=== PATIENT | female | born 1980 | race Caucasian/White ===

== ENCOUNTER 2017-04-14 23:45 | Inpatient (IN) | payer OTHER ==
[~2017-04-14] VITALS: Ht 162.6 cm; Wt 66.0 kg
[~2017-04-14 23:45] MED LIST: DHA200CA PO; PREN1TAB30
[2017-04-15] VITALS (42 sets, daily range): BP systolic 89–170; BP diastolic 24–138; PULSE 72–105; RESP 16–18; TEMP 98–98.5; O2SAT 100
[2017-04-15] MEDS ORDERED: LIDOCAINE HCL 1% 50 ML VIAL ONE (00:34)
[2017-04-15] MEDS ORDERED: fentaNYL 2MCG-BUPIV 0.125% INJ 100 ML ONE (00:53)
[2017-04-15 00:55] LABS: BLOOD, URINE NEG (NEG); COMMENT (UR) CULT NOT INDICATED; CULTURE IF INDICATED CULT NOT INDICATED; GLUCOSE,URINE NEG (NEG); KETONE, URINE NEG (NEG); NITRITE,URINE NEG (NEG); PH, URINE 6.5 (5.0-8.5); SQUAMOUS EPITHELIAL CELL URINE <1 /hpf (0-5); URINE COLOR LIGHT-YELLOW (YELLW/STRAW)
[2017-04-15 01:00] LABS: AUTOMATED NEUTROPHIL # 10.6 TH/MM3 (1.8-7.7); BASOPHIL % 0.2 % (0.0-2.0); EOSINOPHIL # 0.1 TH/MM3 (0-0.4); EOSINOPHIL % 0.8 % (0.0-4.0); HEMATOCRIT 35.9 % (35.0-46.0); HEMO FLAGS DIFF FINAL; LYMPH % 19.7 % (9.0-44.0); LYMPHOCYTE # 2.9 TH/MM3 (1.0-4.8); MEAN CELL VOLUME 98.3 FL (80.0-100.0); MEAN CORPUSCULAR HEMOGLOBIN 34.2 PG (27.0-34.0); MEAN CORPUSCULAR HGB CONC 34.8 % (32.0-36.0); MONO % 7.4 % (0.0-8.0); NEUT % 71.9 % (16.0-70.0); PLATELET COUNT 169 TH/MM3 (150-450); RED BLOOD COUNT 3.66 MIL/MM3 (4.00-5.30); RED CELL DISTRIBUTION WIDTH 13.2 % (11.6-17.2); WHITE BLOOD COUNT 14.8 TH/MM3 (4.0-11.0)
[2017-04-15] MEDS ORDERED: ONDANSETRON HCL 4 MG/2 ML VIAL IV PUSH PRN (01:00)
[2017-04-15] MEDS ORDERED: CITRIC ACID-SODIUM CITRATE LIQ 30 ML UDC PO SCH (01:00)
[2017-04-15] MEDS ORDERED: NS 500 ML BOLUS IV PRN (01:00)
[2017-04-15] MEDS ORDERED: MINERAL OIL 10 ML VIAL TOPICAL PRN (01:00)
[2017-04-15] MEDS ORDERED: NS 1000 ML IV PRN (01:00)
[2017-04-15] MEDS ORDERED: LIDOCAINE HCL 1% 50 ML VIAL I-DERMAL PRN (01:00)
[2017-04-15] MEDS ORDERED: LACTATED RINGER'S 1000 ML IV SCH (01:00)
[2017-04-15] MEDS ORDERED: OXYTOCIN 30 UNITS 500ML PREMIX IV ONE (01:00)
[2017-04-15] MEDS ORDERED: LIDOCAINE HCL 1% 50 ML VIAL INFIL PRN (01:00)
[2017-04-15] MEDS ORDERED: OXYTOCIN 30 UNITS/NS 500ML PREMIX IV SCH (01:00)
[2017-04-15] MEDS ORDERED: LACTATED RINGER'S 1000 ML BOLUS IV PRN (01:00)
[2017-04-15] MEDS ORDERED: ePHEDrine/NS 25 MG/5 ML SYR ONE (02:09)
[2017-04-15] MEDS ORDERED: DO NOT ADMINISTER ANTICOAGULANTS PRN (02:45)
[2017-04-15] MEDS ORDERED: fentaNYL 2MCG-BUPIV 0.125% 100 ML EPIDURAL SCH (02:45)
[2017-04-15] MEDS ORDERED: ePHEDrine/NS 25 MG/5 ML SYR IV PUSH PRN (02:45)
[2017-04-15] MEDS ORDERED: NO SYSTEM NARCOTICS PRN (02:45)
[2017-04-15] MEDS ORDERED: OXYTOCIN 10 UNIT/ML AMP ONE (03:09)
--- NOTE | 2017-04-15 03:22 | PD.OB.DELI ---
Weeks gestation: 40 Gest age assessed date: Apr 15, 2017 Gest age assessed time: 03:20 Pt started active labor?: Yes Active labor start date: Apr 14, 2017 Active labor start time: 19:00 Medical induction of labor?: No Artificial rupture of membrane: No Anesthesia: Epidural Episiotomy: None Vaginal Delivery: Normal Presentation: Occiput anterior Nuchal Cord: None Delayed cord clamping (45 sec): Yes : Female Delivery date: Apr 15, 2017 Delivery time: 03:22 One Minute : 8 Five Minute : 9 Weight: 7 Placenta: Spontaneous delivery Laceration: 1 deg Repair: Chromic running Estimated blood loss: 300 Additional Information tiny midline first degree approximated with Brynn Craven MD Apr 15, 2017 03:22
[2017-04-15] MEDS ORDERED: ACETAMINOPHEN 325 MG TAB PO PRN (03:30)
[2017-04-15] MEDS ORDERED: BENZOCAINE 20% TOPICAL SPRAY 60 ML CAN TOPICAL PRN (03:30)
[2017-04-15] MEDS ORDERED: ZOLPIDEM TARTRATE 5 MG TAB PO PRN (03:30)
[2017-04-15] MEDS ORDERED: ONDANSETRON ODT 4 MG TAB PO PRN (03:30)
[2017-04-15] MEDS ORDERED: ALUMINUM/MAGNESIUM/SIMETH 30 ML CUP PO PRN (03:30)
[2017-04-15] MEDS ORDERED: IBUPROFEN 800 MG TAB PO PRN (03:30)
[2017-04-15] MEDS ORDERED: SODIUM CHLORIDE 0.9% FLUSH 10 ML FLUSH IV FLUSH PRN (03:30)
[2017-04-15] MEDS ORDERED: DOCUSATE SODIUM 50 MG/SENNA 8.6 MG TAB PO PRN (03:30)
[2017-04-15] MEDS ORDERED: OXYTOCIN 30 UNITS-500ML PREMIX 500 ML IV SCH (03:30)
[2017-04-15] MEDS ORDERED: WITCH HAZEL 50%/GLYCERIN 12.5% 40 PAD JAR TOPICAL PRN (03:30)
--- NOTE | 2017-04-15 08:12 | HHI.OB ---
Subjective Post Day: 0 Remarks Doing well 5 hours post delivery no complaints Objective Vitals/I&O Vital Signs Date Time Temp Pulse Resp B/P (MAP) Pulse Ox O2 Delivery O2 Flow Rate FiO2 04/15/17 04:45 75 114/73 (87) 04/15/17 04:30 106/75 (85) 04/15/17 04:26 98.1 04/15/17 04:16 85 105/67 (80) 04/15/17 04:11 18 04/15/17 04:01 107/85 (92) 04/15/17 03:55 18 04/15/17 03:45 18 04/15/17 03:31 105 94/76 (82) 04/15/17 03:29 98.0 04/15/17 03:28 18 04/15/17 02:46 90 113/69 (84) 04/15/17 02:40 96 04/15/17 02:40 100 04/15/17 02:39 72 159/138 (145) 04/15/17 02:35 100 04/15/17 02:34 170/121 (137) 04/15/17 02:30 100 04/15/17 02:25 95 100 04/15/17 02:15 137/86 (103) 04/15/17 02:10 127/75 (92) 100 04/15/17 02:10 97 04/15/17 02:05 91 04/15/17 02:01 103 105/24 (51) 04/15/17 02:00 18 04/15/17 02:00 86 100 04/15/17 01:55 93 100 04/15/17 01:50 84 04/15/17 01:46 86 109/72 (84) 04/15/17 01:45 85 04/15/17 01:45 89/45 (60) 100 04/15/17 01:40 83 100 04/15/17 01:35 85 04/15/17 01:35 85 115/77 (90) 100 04/15/17 01:31 86 04/15/17 01:30 88 04/15/17 01:30 100 04/15/17 01:25 86 04/15/17 01:25 100 04/15/17 01:21 126/91 (103) 04/15/17 01:21 85 11/21/17 01:20 100 04/15/17 01:18 88 121/78 (92) 04/15/17 01:16 138/81 (100) 04/15/17 01:16 88 04/15/17 01:15 100 04/15/17 01:10 89 100 04/15/17 01:09 18 04/15/17 01:05 95 04/15/17 01:05 120/45 (70) Objective Remarks GENERAL: Well-nourished, well-developed patient. CARDIOVASCULAR: Regular rate and rhythm without murmurs, gallops, or rubs. RESPIRATORY: Breath sounds equal bilaterally. No accessory muscle use. ABDOMEN/GI: Abdomen soft, non-tender. Fundus: Firm, non-tender at umbilicus. GENITOURINARY: Light to moderate bleeding. EXTREMITIES: No cyanosis or edema, non-tender, without signs of DVT. Medications and IVs Current Medications Medications (Trade) Dose Ordered Sig/Doris Route Start Time Stop Time Status Last Admin Miscellaneous Information No systemic narcotics to be given except... UNSCH PRN .XX 04/15/17 02:45 04/16/17 02:44 Miscellaneous Information DO NOT ADMINISTER ANY ANTICOAGUL... UNSCH PRN .XX 04/15/17 02:45 04/16/17 02:44 Fentanyl/ Bupivacaine HCl 100 ml @ 0 mls/hr TITRATE EPIDURAL 04/15/17 02:45 (ePHEDrine/NS 25 MG/5 ML SYR) 10 mg UNSCH PRN IV PUSH 04/15/17 02:45 04/16/17 02:44 (NS Flush) 2 ml BID IV FLUSH 04/15/17 09:00 (NS Flush) 2 ml UNSCH PRN IV FLUSH 04/15/17 03:30 Oxytocin 500 ml @ 100 mls/hr CONTINUOUS IV 04/15/17 03:30 04/15/17 08:29 (Tylenol) 650 mg Q4H PRN PO 04/15/17 03:30 (Motrin) 800 mg Q8H PRN PO 04/15/17 03:30 (Americaine 20% Top Spr) 1 spray Q4H PRN TOPICAL 04/15/17 03:30 (Tucks Pads) 1 applic QID PRN TOPICAL 04/15/17 03:30 (Latha-Colace) 2 tab Q12H PRN PO 04/15/17 03:30 (Ambien) 5 mg HS PRN PO 04/15/17 03:30 (M-M-R Ii Inj) 0.5 ml ONCE ONCE SQ 04/15/17 16:00 04/15/17 16:01 (Boostrix Inj) 0.5 ml ONCE ONCE IM 04/15/17 16:00 04/15/17 16:01 (Mag-Al Plus Susp Liq) 15 ml Q8H PRN PO 04/15/17 03:30 (Zofran Odt) 4 mg Q6H PRN PO 04/15/17 03:30 Assessment/Plan Assessment and Plan doing well in early post hopes for discharge PPD 1 (tomorrow) Brynn Barber MD Apr 15, 2017 08:12
[2017-04-15] MEDS ORDERED: SODIUM CHLORIDE 0.9% FLUSH 10 ML FLUSH IV FLUSH SCH (09:00)
[2017-04-15] MEDS ORDERED: MEASLES, MUMPS, RUBELLA VACCINE 0.5 ML VIAL SQ ONE (16:00)
[2017-04-15] MEDS ORDERED: DIPHTH/TETANUS/ACEL PERTUSSIS (BOOSTER) 0.5 ML VIAL/PFS IM ONE (16:00)
--- NOTE | 2017-04-15 17:52 | HHI.DCPOC ---
Discharge Care Plan Diagnosis: (1) Normal vaginal delivery Your Health Problems Are: Vaginal delivery Report Symptoms to Your Doctor -Temperature above 100.5 degrees -Redness, of incision or excessive or foul smelling drainage -Unusual pain or calf pain -Increased vaginal bleeding -Painful or difficulty urinating -Feelings of extreme sadness or anxiety after 2 weeks Goals to Promote Your Health * To prevent worsening of your condition and complications * To maintain your health at the optimal level Directions to Meet Your Goals Take your medications as prescribed Follow your dietary instruction Follow activity as directed Ensure plenty of rest for recovery Drink fluids for hydration Keep your appointments as scheduled Take your immunizations and boosters as scheduled If your symptoms worsen call your PCP, if no PCP go to Urgent Care Center or Emergency Room Smoking is Dangerous to Your Health. Avoid second hand smoke Call the 24-hour crisis hotline for domestic abuse at Juan Torres MD Apr 15, 2017 17:52
--- NOTE | 2017-04-16 06:55 | HHI.OB ---
Subjective Post Day: 1 Remarks Doing well 36 hours post nursing no issues planning for discharge this am Objective Vitals/I&O Vital Signs Date Time Temp Pulse Resp B/P (MAP) Pulse Ox O2 Delivery O2 Flow Rate FiO2 04/15/17 19:30 98.2 80 16 109/73 (85) 04/15/17 13:00 98.5 16 Objective Remarks GENERAL: Well-nourished, well-developed patient. CARDIOVASCULAR: Regular rate and rhythm without murmurs, gallops, or rubs. RESPIRATORY: Breath sounds equal bilaterally. No accessory muscle use. ABDOMEN/GI: Abdomen soft, non-tender. Fundus: Firm, non-tender at umbilicus. GENITOURINARY: Light to moderate bleeding. EXTREMITIES: No cyanosis or edema, non-tender, without signs of DVT. Medications and IVs Current Medications Medications (Trade) Dose Ordered Sig/Doris Route Start Time Stop Time Status Last Admin Fentanyl/ Bupivacaine HCl 100 ml @ 0 mls/hr TITRATE EPIDURAL 04/15/17 02:45 (NS Flush) 2 ml BID IV FLUSH 04/15/17 09:00 (NS Flush) 2 ml UNSCH PRN IV FLUSH 04/15/17 03:30 (Tylenol) 650 mg Q4H PRN PO 04/15/17 03:30 (Motrin) 800 mg Q8H PRN PO 04/15/17 03:30 (Americaine 20% Top Spr) 1 spray Q4H PRN TOPICAL 04/15/17 03:30 (Tucks Pads) 1 applic QID PRN TOPICAL 04/15/17 03:30 (Latha-Colace) 2 tab Q12H PRN PO 04/15/17 03:30 (Ambien) 5 mg HS PRN PO 04/15/17 03:30 (Mag-Al Plus Susp Liq) 15 ml Q8H PRN PO 04/15/17 03:30 (Zofran Odt) 4 mg Q6H PRN PO 04/15/17 03:30 Assessment/Plan Assessment and Plan doing well in early post hopes for discharge PPD 1 (tomorrow) 04/16/17 ready for discharge recommend follow up renal sono for mild pyelectasis RTO 6 weeks Brynn Barber MD Apr 16, 2017 06:55
[2017-04-16] MEDS ORDERED: IBUP1TAB7 PO (06:56)
[2017-04-16 09:00] VITALS: BP 109/77; PULSE 86; RESP 18; TEMP 98; O2SAT 97
== END 2017-04-16 11:26 | disposition home or self-care (01) | DRG 775 ==
LOC: HOBED 23:45 → H2EB 04-15 00:21 → H1EA 04-15 05:33
PROVIDERS: ADMIT Obstetrics & Gynecology; ATTEND Obstetrics & Gynecology
PROC: 10E0XZZ Delivery of Products of Conception, External Approach (ICD-10-PCS; principal; 2017-04-15)
PROC: 0HQ9XZZ Repair Perineum Skin, External Approach (ICD-10-PCS; 2017-04-15)
PROC: 3E0R3BZ Introduction of Anesthetic Agent into Spinal Canal, Percutaneous Approach (ICD-10-PCS; 2017-04-15)
PROC: 00HU33Z Insertion of Infusion Device into Spinal Canal, Percutaneous Approach (ICD-10-PCS; 2017-04-15)
DX: O70.0 First degree perineal laceration during delivery (principal); O35.9XX0 Maternal care for (suspected) fetal abnormality and damage, unspecified, not applicable or unspecified; Z37.0 Single live birth; Z3A.40 40 weeks gestation of pregnancy
CPT/HCPCS: 59025; 80307; 81001; 85025; 86900; 86901; 90715; J2590

== ENCOUNTER 2017-06-16 04:29 | Emergency (ER) | payer OTHER ==
[2017-06-16 04:56] LABS: BILIRUBIN, URINE NEG (NEG); GLUCOSE,URINE NEG (NEG); KETONE, URINE NEG (NEG); NITRITE,URINE NEG (NEG); URINE LEUKOCYTE ESTERASE TRACE (NEG)
[2017-06-16 05:26] LABS: BLOOD, URINE TRACE (NEG)
[2017-06-16 05:33] LABS: AUTOMATED NEUTROPHIL # 5.9 TH/MM3 (1.8-7.7); BASOPHIL # 0.1 TH/MM3 (0-0.2); BASOPHIL % 1.2 % (0.0-2.0); EOSINOPHIL # 0.1 TH/MM3 (0-0.4); EOSINOPHIL % 0.7 % (0.0-4.0); HEMO FLAGS DIFF FINAL; HEMOGLOBIN 12.5 GM/DL (11.6-15.3); LYMPH % 28.7 % (9.0-44.0); LYMPHOCYTE # 2.6 TH/MM3 (1.0-4.8); MEAN CELL VOLUME 96.6 FL (80.0-100.0); MEAN CORPUSCULAR HGB CONC 32.1 % (32.0-36.0); MEAN PLATELET VOLUME 8.4 FL (7.0-11.0); MONO % 5.6 % (0.0-8.0); MONOCYTE # 0.5 TH/MM3 (0-0.9); NEUT % 63.8 % (16.0-70.0); PLATELET COUNT 216 TH/MM3 (150-450); RED BLOOD COUNT 4.04 MIL/MM3 (4.00-5.30); RED CELL DISTRIBUTION WIDTH 12.8 % (11.6-17.2); WHITE BLOOD COUNT 9.2 TH/MM3 (4.0-11.0)
[2017-06-16] MEDS: ONDANSETRON HCL 4 MG/2 ML VIAL IV PUSH (05:36)
[2017-06-16 05:37] LABS: MUCUS URINE RARE /lpf (OCC); SQUAMOUS EPITHELIAL CELL URINE 0-5 /hpf (0-5); URINE COLOR YELLOW (YELLW/STRAW)
[2017-06-16] MEDS: MORPHINE SULFATE 2 MG/ML INJ IV PUSH (05:37)
[2017-06-16 05:38] LABS: COMMENT (UR) CULT NOT INDICATED; CULTURE IF INDICATED CULT NOT INDICATED; RBC, URINE 0-3 /hpf (0-3)
[2017-06-16] MEDS: SODIUM CHLORID 0.9% 500 ML INJ 500 ML IV (05:38)
[2017-06-16 05:50] LABS: CHLORIDE 104 MEQ/L (98-107); POTASSIUM 3.6 MEQ/L (3.5-5.1); SODIUM (NA) 138 MEQ/L (136-145)
[2017-06-16 05:53] LABS: CALCIUM 10.1 MG/DL (8.5-10.1)
[2017-06-16 05:54] LABS: ALBUMIN 3.8 GM/DL (3.4-5.0); ANION GAP 8 MEQ/L (5-15); BICARBONATE 26.2 MEQ/L (21.0-32.0); BLOOD UREA NITROGEN 16 MG/DL (7-18); GLUCOSE,RANDOM 109 MG/DL (74-106); LIPASE 167 U/L (73-393)
[2017-06-16 05:57] LABS: ALT (GPT) 48 U/L (10-53); AST (GOT) 25 U/L (15-37); CREATININE 0.82 MG/DL (0.50-1.00); GLOMERULAR FILTRATION RATE 79 ML/MIN (>89)
[2017-06-16 05:58] LABS: TOTAL BILIRUBIN ADULT 0.3 MG/DL (0.2-1.0); TOTAL PROTEIN 7.9 GM/DL (6.4-8.2)
[2017-06-16 05:59] LABS: ALKALINE PHOSPHATASE 73 U/L (45-117)
[2017-06-16] MEDS: KETOROLAC TROMETHAMINE 30 MG/ML (IVP) VIAL IV PUSH (06:46)
[2017-06-16] MEDS: IOHEXOL 350 MG/ML 10 ML VIAL (for RAD DIAG) IVCONTRAST (07:27)
== END 2017-06-16 08:20 | disposition home or self-care (01) ==
LOC: PHED 04:29
DX: K80.50 Calculus of bile duct without cholangitis or cholecystitis without obstruction (principal)
CPT/HCPCS: 74177; 80053; 81001; 83690; 84703; 85025; 96361; 96374; 96375; 99284-25

== ENCOUNTER → 2017-07-04 | Day surgery (SDC) | payer OTHER ==
[~2017-07-04] VITALS: Ht 162.6 cm; Wt 58.0 kg
[~2017-07-04] MED LIST changes: +ACETAMINOPHEN 1000 MG/100 ML 100 ML IV SCH; +AUGM400S PO; +BUPIVACAINE/EPINEPHRINE 0.25% 50 ML VIAL ONE; +CHLORHEXIDINE GLUCONATE 2 % 1 PACK (2 CLOTHS) TOPICAL PRN; +DEXAMETHASONE SOD PHOS 4 MG/ML VIAL IV ONE; -DHA200CA PO; +GLYCOPYRROLATE 1 MG/5 ML SYRINGE IV PUSH ONE; +KETOROLAC TROMETHAMINE 30 MG/ML (IVP) VIAL IV PUSH ONE; +LACTATED RINGER'S 1000 ML IV PRN; +LIDOCAINE 1%/EPINEPHrine 1:100,000 SOLN 50 ML VIAL ONE; +LIDOCAINE HCL 1% PF 5 ML SYRINGE OTHER ONE; +METOPROLOL TARTRATE 25 MG TAB PO PRN; +MIDAZOLAM HCL 2 MG/2 ML VIAL ONE; +NEOSTIGMINE 5 MG/5 ML SYRINGE IV PUSH ONE; +ONDANSETRON HCL 4 MG/2 ML VIAL IV PUSH ONE; +POVIDONE IODINE 5% (ANTISEPSIS KIT) 4 APPLICATIONS EACH NARE PRN; -PREN1TAB30; +PREN29TA PO; +PROPOFOL 200 MG/20 ML AMP IV ONE; +ROCURONIUM INJ 50 MG/5 ML SYRINGE IV PUSH ONE; +SODIUM CHLORID 0.9% 500 ML IV PRN; +TRAM50TA PO; +ZOFR4TAB PO; +ceFAZolin 2 GM PREMIX 50 ML IV SCH
[2017-07-04 11:00] VITALS: PULSE 73
[2017-07-04 11:55] VITALS: BP 129/84; PULSE 53; RESP 16; TEMP 97.5; O2SAT 99
--- NOTE | 2017-07-06 19:04 | MP ---
cc: DESIRAE LOFTON DATE OF SURGERY 07/04/2017 PREOPERATIVE DIAGNOSIS Chronic cholecystitis, cholelithiasis. POSTOPERATIVE DIAGNOSIS Chronic cholecystitis, cholelithiasis. PROCEDURE Laparoscopic cholecystectomy. SURGEON Allen [employer]OSING SPECIALIST Jennifer Street, MS-3 ANESTHESIA General endotracheal OPERATIVE FINDINGS The patient was found to have a somewhat contracted, thick-walled, stone filled gallbladder with a thickened cystic duct but a normal-sized common bile duct. No other abnormalities were noted. OPERATIVE PROCEDURE The patient was brought to the operating room and after satisfactory general endotracheal anesthesia was obtained, the abdomen was prepped and draped in the usual sterile fashion. 0.25% Marcaine with epinephrine was used to infiltrate the skin for local anesthesia. A small incision made above the umbilicus and a 5 mm trocar was inserted into the peritoneal cavity under direct visualization. The abdomen was distended to 15 mmHg using carbon dioxide after which the camera was reinserted and visceral injury inspected for, with none being identified. Under direct visualization a 12 port and a 5 port were placed in the upper abdomen. The gallbladder was grasped and retracted superiorly over the right lobe of the liver. Brina's pouch was then grasped and retracted inferiorly and laterally placing tension on the hepatoduodenal ligament. The cystic duct, cystic artery were dissected free bluntly to obtain the critical view. The cystic artery was then divided of the gallbladder using the harmonic scalpel. The cystic duct was dissected free down to its junction with the common bile duct which was clearly visualized. Two hemoclips were placed and then the cystic duct divided with the harmonic scalpel. The gallbladder was taken off the liver bed using the harmonic scalpel. It was placed within an EndoCatch bag and brought through the upper midline incision where was withdrawn without problem. The cystic duct and cystic artery stumps were both inspected and found to be intact with no leakage of bile or blood. Liver bed was also found to be hemostatic. No other abnormalities were noted. The carbon dioxide was then vented as completely as possible to the atmosphere after which the ports were removed and the 12 mm fascial defect closed with a single suture of 0 Vicryl. The skin was closed with interrupted 4-0 PDS subcuticular stitches. Steri-Strips were applied and the patient was then awakened and taken from the operating room, in satisfactory condition, having tolerated the procedure well. Estimated blood loss was less than five ml. The instrument count, sponge count and needle counts were reported as being correct x2 at the end of procedure. MD FRANCOISE Jordan/MARCOS /10:54 AM /6:49 PM
== END | disposition home or self-care (01) ==
LOC: PHSDC 07:56
PROVIDERS: ATTEND Surgery
DX: K80.10 Calculus of gallbladder with chronic cholecystitis without obstruction (principal)
CPT/HCPCS: 00790; 47562; 88304; J0131; J0690; J1100; J1885; J2250; J2405; J2710; J3010; J7120